=== PATIENT | male | born 1980 | race African-American/Black ===

== ENCOUNTER 2016-12-03 11:33 | Emergency (ER) | payer SELFPAY ==
[~2016-12-03] VITALS: Ht 172.7 cm; Wt 63.5 kg
[2016-12-03 11:51] VITALS: BP 125/88
--- NOTE | 2016-12-03 12:32 | RAD ---
PA and lateral chest radiographs 12/03/2016. Clinical History: Fever, chest pain and weakness for the last 2 days. PA and lateral digital radiographs of the chest were obtained. Comparison study is dated 09/29/2008. The cardiac and mediastinal silhouettes are within normal limits in size and configuration. No pulmonary infiltrate is seen. No pleural effusion or pneumothorax is noted. The osseous structures are grossly intact. Impression: No radiographic evidence of active cardiopulmonary disease.
[2016-12-03] MEDS ORDERED: ACETAMINOPHEN 500 MG TABLET PO ONE (13:15)
[2016-12-03 13:21] LABS: OBC FLU VALID
[2016-12-03] MEDS ORDERED: OSEL75CA PO (13:44)
--- NOTE | 2016-12-03 13:45 | PHYS DOC ---
Past Medical History Past Medical History: No Pertinent History Past Surgical History: No Surgical History Alcohol Use: None Drug Use: None Adult General Chief Complaint Chief Complaint: GENERALIZED BODY ACHES [facility] HPI Patient is a 36 year old male who presents with generalized body aches, chills , subjective fevers cough and nasal congestion that began yesterday. Review of Systems Review of Systems Constitutional: fever and chills [] Eyes: Denies change in visual acuity, redness, or eye pain [] HENT: nasal congestion Respiratory: Denies cough or shortness of breath [] Cardiovascular: No additional information not addressed in HPI [] GI: Denies abdominal pain, nausea, vomiting, bloody stools or diarrhea [] : Denies dysuria or hematuria [] Musculoskeletal: Denies back pain or joint pain [] Integument: Denies rash or skin lesions [] Neurologic: Denies headache, focal weakness or sensory changes [] Endocrine: Denies polyuria or polydipsia [] Current Medications Current Medications Current Medications Medications (Trade) Dose Ordered Sig/Roberth Start Time Stop Time Status Last Admin Dose Admin Acetaminophen (Tylenol) 1,000 mg 1X ONCE 12/03/16 13:15 12/03/16 13:19 DC 12/03/16 13:15 1,000 MG Allergies Allergies Allergies Coded Allergies Type Severity Reaction Last Updated Verified No Known Drug Allergies 12/03/16 No Physical Exam Physical Exam Constitutional: Well developed, well nourished, no acute distress, non-toxic appearance. [] HENT: Normocephalic, atraumatic, bilateral external ears normal, oropharynx moist, no oral exudates, nose normal. [] Eyes: PERRLA, EOMI, conjunctiva normal, no discharge. [] Neck: Normal range of motion, no tenderness, supple, no stridor. [] Cardiovascular:Heart rate regular rhythm, no murmur [] Lungs & Thorax: Bilateral breath sounds clear to auscultation [] Abdomen: Bowel sounds normal, soft, no tenderness, no masses, no pulsatile masses. [] Skin: Warm, dry, no erythema, no rash. [] Back: No tenderness, no CVA tenderness. [] Extremities: No tenderness, no cyanosis, no clubbing, ROM intact, no edema. [] Neurologic: Alert and oriented X 3, normal motor function, normal sensory function, no focal deficits noted. [] Psychologic: Affect normal, judgement normal, mood normal. [] Current Patient Data Vital Signs Vital Signs Date Time Temp Pulse Resp B/P Pulse Ox O2 Delivery O2 Flow Rate FiO2 12/03/16 11:51 100.6 90 18 96 Room Air 100.6 Lab Values Laboratory Tests Test 12/03/16 12:52 Influenza Type A Antigen Negative (NEGATIVE) Influenza Type B Antigen Positive (NEGATIVE) EKG EKG [] Radiology/Procedures Radiology/Procedures [] Course & Med Decision Making Course & Med Decision Making Pertinent Labs and Imaging studies reviewed. (See chart for details) Patient is in the ED with flulike symptoms including fever with a temperature 100.6, body aches chills cough and running nose. Positive for influenza B. Negative influenza A, chest x-ray interpreted by radiologist is negative for any acute findings. Given Tylenol in the ED. Discharged with Tamiflu. Instructed to push fluids. Tylenol Motrin for pain or fever. Follow-up with primary care doctor in 1-2 weeks. Dragon Disclaimer Dragon Disclaimer This electronic medical record was generated, in whole or in part, using a voice recognition dictation system. Departure Departure Impression: Primary Impression: Influenza B Additional Impressions: Fever Cough Upper respiratory infection Disposition: 01 HOME, SELF-CARE Condition: STABLE Referrals: NO PCP (PCP) Follow-up with your own doctor in 1-2 weeks Patient Instructions: Fever, Adult, Upper Respiratory Infection, Adult Additional Instructions: You tested positive for influenza B. This is a viral illness. Take Tamiflu as prescribed. Push fluids and maintain good hand hygiene. Take Tylenol every 4 hours and Motrin every 6 hours. Come back to the ED symptoms worsen. Scripts Oseltamivir Phosphate (Tamiflu)75 Mg Capsule1 Cap PO BID #10 CAP Prov:GHASSAN MONDRAGON [employer] 12/03/16 Problem Qualifiers Additional Impressions: Fever Fever type: unspecified Qualified Code: R50.9 - Fever, unspecified Upper respiratory infection URI type: unspecified URI Qualified Code: J06.9 - Acute upper respiratory infection, unspecified GHASSAN MONDRAGON [employer] Dec 03, 2016 13:44
== END 2016-12-03 13:51 | disposition home or self-care (01) ==
LOC: ER 11:33
DX: J10.1 Influenza due to other identified influenza virus with other respiratory manifestations (principal); J06.9 Acute upper respiratory infection, unspecified
CPT/HCPCS: 71020; 87804; 99285-25